=== PATIENT | female | born 2000 | race Hispanic/Latino ===

== ENCOUNTER 2018-11-20 10:03 | Observation (INO) | payer MEDICAID ==
[~2018-11-20] VITALS: Ht 160 cm; Wt 71.7 kg
[2018-11-20 10:58] LABS: APPEARANCE,URINE CLOUDY (CLEAR); BILIRUBIN,URINE NEGATIVE (NEGATIVE); COLOR,URINE YELLOW (YELLOW); GLUCOSE, URINE (UA) NEGATIVE (NEGATIVE); KETONES,URINE 5 mg/dL (NEGATIVE); LEUKOCYTE ESTERASE ,URINE LARGE (NEGATIVE); NITRATE,URINE NEGATIVE (NEGATIVE); OCCULT BLOOD,URINE TRACE-INTACT (NEGATIVE); PROTEIN,URINE NEGATIVE (NEGATIVE); UROBILINOGEN,URINE 0.2 mg/dL (0.2-1.0)
[2018-11-20 11:13] LABS: BACTERIA,URINE Moderate /HPF (None Seen); TRICHOMONAS,URINE Moderate /LPF (None Seen); WBC,URINE 26-50 /HPF (0-1)
[2018-11-20] MEDS ORDERED: LACTATED RINGERS 1000ML 1,000 ML IV PRN (11:23)
[2018-11-20] MEDS ORDERED: AMPICILLIN 2GM+NS 100ML 100 ML IV SCH (11:30)
[2018-11-20] MEDS ORDERED: MEPERIDINE-PF 50 MG/ML SYG IVP ONE (11:30)
[2018-11-20] MEDS ORDERED: PROMETHAZINE HCL 25 MG/ML 1ML AMPULE IM PRN (11:30)
[2018-11-20 11:43] LABS: HEMATOCRIT 29.8 % (36-48); MEAN CORPUSCULAR HEMOGLOBIN 25.1 pg (27.0-33.0); MEAN CORPUSCULAR HGB CONC 32.6 g/dL (32.0-36.0); MEAN CORPUSCULAR VOLUME 76.9 fL (80-100); PLATELET COUNT (AUTO) 291 K/uL (130-400); RED BLOOD CELL COUNT(AUTO) 3.87 MIL/uL (4.00-5.50); RED CELL DISTRIBUTION WIDTH 19.4 % (11.0-15.5); WHITE BLOOD COUNT (AUTO) 14.2 K/uL (4.8-10.8)
[2018-11-20] MEDS: AMPICILLIN 1GM+NS 50ML 50 ML IV SCH ×2 (15:57→19:44)
[2018-11-20] MEDS: LACTATED RINGERS 1000ML IV SCH (19:44)
[2018-11-21] MEDS: AMPICILLIN 1GM+NS 50ML 50 ML IV SCH ×2 (00:09→03:49)
[2018-11-21] MEDS: LACTATED RINGERS 1000ML IV SCH (03:04)
[2018-11-21 06:56] LABS: RAPID PLASMA REAGIN NONREACTIVE (NONREACTIVE)
[2018-11-22 07:19] LABS: HEPATITIS Bs ANTIGEN SCREEN P Negative (Negative)
[2018-11-25] MEDS ORDERED: PREN-94 PO (06:12)
== END 2018-11-21 10:45 | disposition home or self-care (01) ==
LOC: EDH 10:03 → LDH 10:21
PROVIDERS: ADMIT Obstetrics & Gynecology; ATTEND Obstetrics & Gynecology
DX: O26.893 Other specified pregnancy related conditions, third trimester (principal); R10.9 Unspecified abdominal pain; O99.89 Other specified diseases and conditions complicating pregnancy, childbirth and the puerperium; M54.9 Dorsalgia, unspecified; Z3A.37 37 weeks gestation of pregnancy
CPT/HCPCS: 36415; 59025; 76805; 81001; 85027; 86592; 86701; 86850; 86900; 86901; 87340; 87390; 96365; 96366 ×2; 96372; 96375; 99284; G0378 ×23; J0290 ×6; J2175; J2550; J7120 ×4; 96360; 96361

== ENCOUNTER 2021-01-21 05:30 | Day surgery (SDC) | payer OTHER ==
[2021-01-20 11:36] LABS: BASOPHILS % (AUTO) 0.3 % (0.0-5.0); HEMATOCRIT 41.4 % (36-48); MEAN CORPUSCULAR HEMOGLOBIN 30.3 pg (27.0-33.0); MEAN CORPUSCULAR HGB CONC 33.1 g/dL (32.0-36.0); MEAN CORPUSCULAR VOLUME 91.6 fL (79-99); MONOCYTES % (AUTO) 2.9 % (3.0-13.0); NEUTROPHILS % (AUTO) 72.5 % (40.0-77.0); PLATELET COUNT (AUTO) 433 K/uL (130-400); RED BLOOD CELL COUNT(AUTO) 4.52 MIL/uL (4.00-5.50); RED CELL DISTRIBUTION WIDTH 12.5 % (11.0-15.5); WHITE BLOOD COUNT (AUTO) 8.7 K/uL (4.8-10.8)
[2021-01-20 14:19] VITALS: BP 111/58
[~2021-01-21] VITALS: Ht 160 cm; Wt 75.0 kg
[2021-01-21] VITALS (17 sets, daily range): BP systolic 110–125; BP diastolic 64–82
[2021-01-21] MEDS ORDERED: LACTATED RINGERS 1000ML 1,000 ML IV ONE (05:49)
[2021-01-21] MEDS ORDERED: PROPOFOL 10 MG/ML 20ML VIAL IV ONE (06:39)
[2021-01-21] MEDS ORDERED: DEXAMETHASONE SOD PHOSPHATE 10MG/ML 1ML VIAL ONE (06:39)
[2021-01-21] MEDS ORDERED: ONDANSETRON 4MG INJ ONE (06:39)
[2021-01-21] MEDS ORDERED: LIDOCAINE PF 100MG/5ML (2%) SYRINGE 5ML ONE (06:39)
[2021-01-21] MEDS ORDERED: FENTANYL CITRATE PF 50 MCG/1 ML 2ML VIAL ONE (06:39)
[2021-01-21] MEDS ORDERED: MIDAZOLAM HCL 1 MG/ML 2ML VIAL ONE (06:39)
[2021-01-21] MEDS ORDERED: SUCCINYLCHOLINE 200MG/10ML SYR ONE (06:39)
[2021-01-21] MEDS ORDERED: MEPERIDINE-PF 25 MG/ML SYG ONE ×3 (06:41→08:17)
[2021-01-21] MEDS ORDERED: BACITRACIN 28.4 GM OINT TP ONE (07:40)
[2021-01-21] MEDS ORDERED: LACTATED RINGERS 1000ML 1,000 ML IV SCH (08:00)
== END 2021-01-21 09:42 | disposition home or self-care (01) ==
LOC: DAH 05:30
PROVIDERS: ATTEND Obstetrics & Gynecology
DX: N75.0 Cyst of Bartholin's gland (principal); Z20.822 Contact with and (suspected) exposure to COVID-19; Z98.891 History of uterine scar from previous surgery; Z83.3 Family history of diabetes mellitus; Z82.49 Family history of ischemic heart disease and other diseases of the circulatory system; Z83.438 Family history of other disorder of lipoprotein metabolism and other lipidemia
CPT/HCPCS: 36415; 56740; 84703; 85025; 86850; 86900; 86901; 87635; A4215; A4221; A4222; A4223; A4335; A4351; A4663; A4930; C9803; J0330; J1100; J2001; J2175 ×3; J2250; J2405; J2704; J3010; J7120